=== PATIENT | female | born 1990 | race Asian ===

== ENCOUNTER → 2020-08-04 | Outpatient (CLI) | payer OTHER ==
[~2020-08-04] MED LIST: NO ITAB PO; PREN1CHW6 PO
--- NOTE | 2020-08-07 10:17 | ECHO ---
DATE OF PROCEDURE: 08/04/2020 Age: 29 Gender: Female Height: 165 cm Weight: 54.4 kg REFERRING PHYSICIAN: Pranay Deras MD INDICATION: Chemotherapy drugs that may affect the heart. MEASUREMENTS: 2D Measurements: Aortic root 2.9 cm Left atrium 3.2 cm Intraventricular septum 0.84 cm Posterior wall 0.96 cm Left ventricle diastole 4.6 cm Inferior vena cava 2.2 cm Doppler Measurements: No aortic regurgitation No aortic stenosis Aortic valve velocity 119 cm/s LVOT velocity 68.4 cm/s Very mild mitral regurgitation Mitral E velocity 59.6 cm/s Mitral A velocity 38.5 cm/s Mitral deceleration time 218 msec Trace tricuspid regurgitation Estimated right ventricular systolic pressure 27-32 mmHg Very mild pulmonic regurgitation Pulmonary artery acceleration time 187 msec MITRAL ANNULAR TISSUE DOPPLER E prime septal 10.4 cm/s DESCRIPTION: Rhythm was sinus bradycardia. Image quality was fair. No pericardial effusion. This was a 2D, M-mode, color flow Doppler, and pulsed wave Doppler examination including mitral annular tissue Doppler. No pericardial effusion. CONCLUSIONS: 1. Normal echocardiogram Doppler. 2. Normal left ventricle internal dimensions and wall thickness. Normal regional LV wall motion and wall thickening. Normal LV systolic function. LVEF 65% by visual estimate. Normal LV diastolic function. MTDD
== END ==
LOC: M CARPUL 14:32
PROVIDERS: ATTEND Specialist
DX: C50.919 Malignant neoplasm of unspecified site of unspecified female breast (principal)

== ENCOUNTER → 2020-08-11 | Outpatient (CLI) | payer OTHER ==
[~2020-08-11] MED LIST changes: +PROHANCE 279.3MG/ML 15ML VIAL As Ordered ONE
--- NOTE | 2020-08-11 18:20 | REP ---
INDICATION: BREAST CA RIGHT BREAST, IDC. COMPARISON: Mammogram and ultrasound 07/21/2020. TECHNIQUE: Three [place] MRI imaging was performed with a dedicated breast coil. Axial, coronal, and sagittal T1 and T2 weighted scans were obtained with and without fat saturation in the usual fashion. The study includes dynamically acquired post gadolinium-enhanced imaging with image subtraction. Maximum intensity projection and multi planar reformation imaging is included as well. This study is interpreted with the aid of LinksyD, an FDA approved computer aided detection (CAD) software program, on a dedicated breast MRI workstation. The gadolinium enhancement dose is 10 mL of intravenous ProHance. FINDINGS: There is an extreme pattern of parenchymal tissue bilaterally. In the right breast at approximately 1 o'clock, there is a cyst measuring approximately 2.2 cm in diameter. There are several subcentimeter cysts scattered throughout the left breast, as well as a cyst in the lower outer aspect measuring approximately 1.4 cm. There is moderate background parenchymal enhancement. There is a biopsy clip located superiorly and far laterally in the right breast, at the level of the cyst, and another biopsy clip is seen more inferiorly in the lateral right breast at about 8 o'clock. No discrete enhancing mass is visualized at these locations, rather there is diffuse heterogeneous, bulky and somewhat nodular enhancement throughout all 4 quadrants of the right breast. All areas demonstrate suspicious, predominantly washout type enhancement. The abnormal enhancing soft tissue extends into to the right axillary region. There is also diffuse skin thickening and enhancement. The findings are consistent with diffuse invasive tumor infiltration of the entire right breast and axilla, with lymphatic spread. A conglomerate of enlarged lymph nodes in the right axilla is visualized. The conglomerate in total measures approximately 3.7 x 2.4 cm. There is no definite enhancement of the underlying pectoralis muscles. On the left there is an asymmetric area of ill-defined focal enhancement. This does not have well-defined margins. Approximate dimensions are 3.0 x 1.7 x 3.1 cm. The area is located at approximately 12 o'clock in the left breast, posteriorly approximately 7-8 cm from the nipple. This area demonstrates predominantly washout type enhancement. It appears suspicious. There is no left axillary adenopathy. IMPRESSION: BI-RADS category 6 known right breast cancer. Diffuse abnormal enhancement throughout all 4 quadrants of the right breast extending into the right axilla. There is also diffuse skin thickening and enhancement. The findings are consistent with diffuse infiltrative tumor throughout the right breast and axilla with lymphatic spread. There is a conglomerate of lymphadenopathy in the right axilla. Suspicious area of ill-defined enhancement in the 12 o'clock region of the left breast. Recommend second-look ultrasound in this region for potential ultrasound-guided biopsy. <Electronically signed by Colt Anton > 08/11/20 [id number]
== END ==
LOC: EDUNIT# 15:00 → M RAD 15:03
PROVIDERS: ATTEND Nurse Practitioner Primary Care
DX: C50.911 Malignant neoplasm of unspecified site of right female breast (principal); N63.25 Unspecified lump in the left breast, overlapping quadrants
CPT/HCPCS: A9576; C8908

== ENCOUNTER → 2020-08-14 | Outpatient (CLI) | payer OTHER ==
[~2020-08-14] MED LIST changes: +LIDOCAINE 1% MDV 20ML VIAL As Ordered ONE; +MIDAZOLAM INJ 2MG/2ML VIAL (J2250 PER 1MG) As Ordered ONE; -PROHANCE 279.3MG/ML 15ML VIAL As Ordered ONE; +PROMETHAZINE INJ 25 MG/ML VIAL (J2550) As Ordered ONE; +ceFAZolin 2 GM/D5W 50 ML IV BAG (J0690 PER 500MG) As Ordered ONE; +diphenhydrAMINE 50MG/ML VIAL (J1200) As Ordered ONE; +fentaNYL 100 MCG/2 ML INJECTION (J3010) As Ordered ONE
[2020-08-14 17:22] VITALS: BP 102/69
--- NOTE | 2020-08-15 10:50 | IRPON ---
IR Postoperative Note Date Of Procedure: August 14, 2020 Time Of Procedure: 16:00 IR Postoperative Note IR Ultrasound and fluoroscopy guided port placement. IR Ultrasound of the neck. IR Moderate sedation. Clinical indication: Right-sided breast cancer. Physician: Dr. Jauregui. Procedure: The patient was advised of the benefits, risks, and alternatives of the procedure and informed consent was obtained. A time-out was performed with verification of the patient's name, MRN, site of procedure and type of procedure to be performed. The patient was positioned in the supine position on the angiographic table. The site was prepped and draped in the usual sterile fashion. Moderate sedation was performed by the physician including the presence of an independent trained RN who assisted and monitored the patient's level of consciousness and physiologic status. Following the administration of fentanyl and Versed , the physician spent 45 minutes of continuous face to face time with the patient. Ultrasound of the neck reveals a patent and compressible left internal jugular vein. A cartridge feeder radiograph reveals no gross abnormality. The neck and anterior chest wall were anesthetized with lidocaine. The left internal jugular vein was accessed using a microintroducer needle under ultrasound guidance, via a lateral approach. An 018 wire was advanced into the superior vena cava, the needle was removed and a microsheath was placed. An Amplatz wire was then passed into the inferior vena cava. An incision at the internal jugular vein access site and anterior chest wall were made using a scalpel. An incision was made at the anterior chest wall. A small pocket was created using a combination of blunt and sharp dissection. A tunneling device was then used to pass the catheter from the pocket to the neck puncture site. An 8- [place] Genability Smart power port was then positioned in the pocket. The catheter was then measured and cut. The introducer sheath was exchanged for a peel-away sheath. The catheter was passed through the peel-away sheath into the internal jugular vein and the peel-away sheath was removed. The port tip was positioned at the cavoatrial junction. The port was then accessed with a Horn needle. The port flushes and aspirates well. The puncture site in the neck was closed. The chest wall incision was then closed with 2-0 Vicryl and 4-0 Monocryl. Glue and Steri- Strips were applied. A sterile dressing was then applied. The patient tolerated the procedure well and was returned to the PRU in stable condition. Estimated blood loss: <5 ml. Complications: None. Conclusion: 1. Successful placement of an 8-[place] Angio dynamics Smart power port via the left internal jugular vein. The port is ready for immediate use. 2. Patient to follow up in IR clinic in 2 weeks. Thank you for this referral. CR JAUREGUI MD August 15, 2020 10:50
== END ==
LOC: M IRPRO 13:19
PROVIDERS: ATTEND Radiology Diagnostic Radiology
DX: C50.911 Malignant neoplasm of unspecified site of right female breast (principal)
CPT/HCPCS: 36561; 99152; 99153; C1769; C1788; C1894; J0690; J1200; J1642; J1644; J2250; J3010

== ENCOUNTER → 2020-08-14 | Outpatient (CLI) | payer OTHER ==
[~2020-08-14] MED LIST changes: -LIDOCAINE 1% MDV 20ML VIAL As Ordered ONE; -MIDAZOLAM INJ 2MG/2ML VIAL (J2250 PER 1MG) As Ordered ONE; -PROMETHAZINE INJ 25 MG/ML VIAL (J2550) As Ordered ONE; -ceFAZolin 2 GM/D5W 50 ML IV BAG (J0690 PER 500MG) As Ordered ONE; -diphenhydrAMINE 50MG/ML VIAL (J1200) As Ordered ONE; -fentaNYL 100 MCG/2 ML INJECTION (J3010) As Ordered ONE
== END ==
LOC: M PLALAB 10:07
PROVIDERS: ATTEND Surgery
DX: C50.911 Malignant neoplasm of unspecified site of right female breast (principal)

== ENCOUNTER → 2020-08-16 | Outpatient (CLI) | payer OTHER ==
--- NOTE | 2020-08-17 08:01 | REP ---
INDICATION: R92.8 ABN MRI OF LEFT BREAST. Extensive carcinoma of the right breast. COMPARISON: Comparison is made with MRI study from August 11, 2020.. TECHNIQUE: Targeted left breast sonography in the superior aspect of the left breast. There is a dressing 4 recently placed chemotherapy infusion port in the subclavicular soft tissues on the left but this is a little more medial than the area of interest and is not felt to have substantially interfered with the study. FINDINGS: Left breast is scanned superiorly from 11:00 to 1:00. Scanning was performed with me physically in the room. At 11 the donis 30 near the nipple there is a tiny 4 mm cyst. There is sonographically unremarkable heterogeneous fibroglandular tissue in the superior left breast. No sonographically suspicious features are observed. In comparison with the area of interest on MRI study there is a separation between 2 areas of fibroglandular tissue in the superior aspect left breast and this corresponds with thick configuration of fibroglandular tissue on the MRI study. The more medial area is the area of interest on MRI scanning. This separation between the 2 areas of fibroglandular tissue can be appreciated on sonography. The more medial area could be localized but there are no sonographically suspicious features. IMPRESSION: Sonographically benign-appearing fibroglandular tissue as described above. Findings were reviewed with Dr. Altamirano at the time of the study. <Electronically signed by Baldev Ireland > 08/17/20 [id number]
== END ==
LOC: M WHC 15:17
PROVIDERS: ATTEND Surgery
DX: R92.8 Other abnormal and inconclusive findings on diagnostic imaging of breast (principal)

== ENCOUNTER → 2020-08-16 | Outpatient (REF) | payer OTHER ==
[~2020-08-16] MED LIST changes: +ATIV1TAB7 PO; +LIDO1CRE42 TOP; +OXYC1TAB23
== END ==
LOC: M LAB REF 19:39
PROVIDERS: ATTEND Surgery
DX: C50.911 Malignant neoplasm of unspecified site of right female breast (principal)

== ENCOUNTER → 2020-08-18 | Outpatient (CLI) | payer OTHER ==
[~2020-08-18] MED LIST changes: -ATIV1TAB7 PO; -LIDO1CRE42 TOP; -OXYC1TAB23
--- NOTE | 2020-08-18 10:23 | REP ---
INDICATION: R92.8 ABN MRI OF LEFT BREAST. Biopsy-proven malignancy contra laterally in the right breast. COMPARISON: Comparison mammography July 21, 2020. Comparison left breast sonography August 16, 2020. Comparison bilateral breast MRI study August [id number]. TECHNIQUE: Craniocaudal, mediolateral oblique, and mediolateral views of the left breast are obtained. 3D tomography including ragini spot mammography is deployed. This mammogram was interpreted with the aid of an FDA-approved computer-aided detection system. FINDINGS: Breast parenchyma is extremely dense. The Volpara volumetric breast density pattern is D. On the craniocaudal spot ragini images there is an area of breast parenchymal density which is not suspicious by mammographic criteria but which may correspond with the area of enhancement on recent MRI study. The orthogonal spot images are felt to be 2 inferior. These were limited by the dressing associated with the recently placed Asrtex-H-Puab. A mediolateral oblique projection with a "bread clark" spot device does not show any mammographically visible suspicious target.: IMPRESSION: There is no mammographically suspicious target or abnormality in the left breast. Breast parenchyma is heterogeneously dense as previously noted. Left sided Pydpmh-J-Bxuc catheter device is in place which limits mammographic projection somewhat. Findings were reviewed at the view box with Dr. Altamriano at the time of the exam. RECOMMENDATION: After consultation with Dr. Altamirano. We will proceed with ultrasound-guided needle biopsy left breast. <Electronically signed by Baldev Ireland > 08/18/20 [id number]
== END ==
LOC: M WHC 08:30
PROVIDERS: ATTEND Surgery
DX: N63.20 Unspecified lump in the left breast, unspecified quadrant (principal)
CPT/HCPCS: 77065; G0279

== ENCOUNTER → 2020-08-21 | Outpatient (CLI) | payer OTHER ==
[~2020-08-21] MED LIST changes: +ATIV1TAB7 PO
--- NOTE | 2020-08-22 16:50 | REP ---
INDICATION: STAGING INVASIVE DUCTAL CARCINOMA RT LYMPHNODE. Two weeks status post left arm COVID vaccine 1. COMPARISON: Comparison is made with recent breast imaging including breast MRI and mammography.. TECHNIQUE: Forty-seven minutes following the intravenous injection of a 8.13 mCi dose of F-18 FDG, three-dimensional PET scintigraphy is acquired from the skull base to the proximal thighs. Triplanar noncontrast CT scanning is acquired through the same anatomic range for attenuation correction, and image registration with scan parameters optimized to minimize radiation exposure to the patient. PET scintigraphy and CT datasets were fused and displayed on a workstation with multiplanar and projection display capability. FINDINGS: There is multifocal bilateral uptake in the supraclavicular and cervical regions. Some of this may be due to brown fat but there is evidence of a small normal-sized right cervical lymph node with maximum SUV value 3.49 which is felt to be somewhat suspicious. There is a left axillary normal-sized lymph node showing maximum standard uptake value There is widespread extensive markedly hypermetabolic uptake throughout the right breast. Maximum standard uptake value in the right breast is in the the lateral aspect of the right breast, maximum SUV value 17.76. There is hypermetabolic right axillary lymphadenopathy maximum standard uptake value 14.07 and 9.12 in right axillary lymph nodes. There is some right subclavian juan uptake in tiny lymph nodes. There is a small subcentimeter focus of increased uptake in the right internal mammary lymph node chain in and parasternal region where maximum standard uptake value is 3.85. There is no abnormal hypermetabolic uptake in the left breast soft tissues. No abnormal hypermetabolic uptake is seen within the pulmonary parenchyma or in hilar or mediastinal nodes. No abnormal pleural uptake is seen. In the abdomen and pelvis, there is normal hepatic, splenic, gastrointestinal, and genitourinary FDG accumulation. No abnormal abdominal or pelvic hypermetabolic uptake focus is seen. In the skeleton, there is a 2 cm radiolucency in the left ischium which shows hypermetabolic uptake. Maximum standard uptake value is 10.93. This consistent with a skeletal metastasis. No other bony metastasis is appreciated. IMPRESSION: 1. There is extensive hypermetabolic uptake throughout the right breast. 2. There is hypermetabolic right axillary and right subclavian adenopathy. A suspicious of but tiny focus of internal mammary uptake is seen on the right. 3. There is equivocal juan uptake in the supraclavicular regions bilaterally, a sub cm right cervical node, and in the left axillary lymph node. Some of this activity could be related to brown fat and the patient is status post COVID vaccination in the left arm 2 weeks ago. 4. There is a suspicious lytic lesion in the left ischium, 2 cm in diameter showing hypermetabolic uptake consistent with a skeletal metastasis. <Electronically signed by Baldev Ireland > 08/22/20 [id number]
== END ==
LOC: M PLARAD 12:01
PROVIDERS: ATTEND Nurse Practitioner Primary Care
DX: C50.911 Malignant neoplasm of unspecified site of right female breast (principal)
CPT/HCPCS: 78815; A9552

== ENCOUNTER → 2020-08-22 | Outpatient (CLI) | payer OTHER ==
--- NOTE | 2020-08-23 08:33 | RADONC.CN ---
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 She is seen today to discuss the role of RT in her care. Diagnosis/Treatment History Oncologic History May 2020 noted onset of right breast redness and induration. 07/21/20 Mammogram & US with right breast central abnormality and right axillary adenopathy, enlarged, confluent 07/24/20 Biopsy right breast; IDC grade 2 ER/[place]/HER2+, right axillary node biopsy; IDC 08/11/20 MRI diffuse enhancing mass in the central right breast, also left breast 12:00 lesion 08/16/20 US left breast with benign appearing tissues Subsequent skin punch biopsies confirming tumor in the dermal lymphatics Relevant data: 08/21/20 PET-CT Marked avidity in the right breast enhancing mass and adenopathy extending to cervical level IV Left axillary adenopathy of normal size and mild uptake, suspect reactive Left ischium lytic lesion with marked avidity concerning for metastasis Breast history: Menses @ 11 Pre-menopausal OCP use x 10 years No fertility treatments Interval History Here with her supportive . She reports that the right breast is not painful, but is somewhat tender. She notes no swelling in the right arm. Had COVID vaccine in the left arm last week. Did well with this no symptoms. She reports no pain of recent trauma to the pelvis or any bones. She has preserved appetite and energy level. Coping with her situation by communicating with family, she reports a positive outlook overall. Past Medical History: ADHD Past Surgical History: As above Family History: Brother colon cancer Social History: Current smoker up to 1 ppd Drinks on occasion, not to excess Allergies / Meds Allergies: Coded Allergies: amoxicillin (Verified Allergy, Intermediate, hives, 08/14/20) Home Meds Reported Medications Vit37/Iron/Folic Acid (Prenata Chewable Tablet) 1 Each Tab.chew, 1 TAB PO DAILY for 30 Days, #30 TAB 08/03/20 Multivitamin with Minerals (Multiple Vitamin) 1 Each Tablet, 1 TAB PO, TAB 08/03/20 Review of Systems General: Reports: Normal Appetite Constitutional: Denies: Chills, Fever, Night Sweats Eyes: Denies: Pain, Vision change HEENT: Denies: Head Aches, Dysphagia, Sore Throat Skin: Denies: Rash, Lesions, Bruising Pulmonary: Denies: Dyspnea, Cough Cardiovascular: Denies: Chest Pain, Palpitations, Edema Breast: Reports: New Breast Lumps / Masses (As above) Gastrointestinal: Denies: Nausea, Vomiting, Abdominal Pain, Diarrhea Genitourinary: Denies: Dysuria, Frequency, Incontinence Hematologic: Denies: Bruising, Petecchia, Enlarged Lymph Nodes Musculoskeletal: Denies: Neck pain, Back pain Neurological: Denies: Weakness, Numbness, Incoordination Psych: Reports: Mood Normal; Denies: Memory Issues, Thoughts of Self Harm Vital Signs Ht 65" Wt 129 lbs BMI 21 T 98 P 55 RR 16 BP 100/66 O2 92% Pain 0 Fatigue 1 General Exam: Positive: Alert, Cooperative, No Acute Distress Eye Exam: Positive: PERRLA, EOMI ENT EXAM: Positive: Atraumatic, Mucous membr. moist/pink, Tongue Midline Neck Exam: Positive: Supple; Negative: Lymphadenopathy (No palpable adenopathy in the neck or supraclavicular fossae) Chest Exam: Positive: Clear to auscultation, Normal air movement Heart Exam: Positive: Rate Normal, Regular Rhythm Breast Exam: Positive: Lumps or Masses (The right breast is enlarged, red and indurated compared to left, there is peau d'orange skin changes in a periareolar distribution. The entirety of the right breast is red. The breast is hard to palpation, it is mobile with respect to the chest wall, there is minimal tenderness. There are hard fixed axillary LNs palpable on the right, I am unable to count how many constitute the matted mass. The left breast is dense there, are no skin changes or palpable lesions in the breast or left axilla. There is no swelling of the RUE or LUE. ); Negative: Symmetric Bilaterally Abdomen Exam: Positive: Soft; Negative: Tenderness Extremity Exam: Negative: Edema Neuro Exam: Positive: Normal Gait, Normal Speech, Cranial Nerves 3-12 NL Psych Exam: Positive: Mental status NL, Mood NL Diagnostic and Laboratory Diagnostic Review Radiologic images, relevant labs and pathology reports were personally reviewed and discussed with Ms. Ridley. Assessment and Plan Impression Ms. Ridley is a 29 year old female current smoker with right inflammatory breast cancer [id number] stage IV. She is seen today to discuss the role of RT in her care. Stage Stage IV [id number] right central breast cancer IDC ER/[place]/HER2+ Grade 2 Performance Status ECOG 0 Plan We had an extensive discussion with Ms. Ridley regarding the diagnosis at hand and available therapeutic options. She is young fit and otherwise healthy. Her right breast harbors an impressive lesion which she states manifested over the course of weeks. She also has extensive regional adenopathy. More concerning however is the likely solitary left ischium metastasis. I reviewed her PET-CT with her and her extensively and discussed the implications of the likely metastasis on her treatment. I first recommend that she have a confirmatory bone biopsy as this is the only other site of disease outside of the locoregional disease. I explained that regardless of the results of the biopsy initial treatment in her case would consist of systemic therapy, for which she is seeing Dr. Deras on Friday. She has a triple positive cancer, so some combination of cytotoxic chemotherapy and HER2-targetted therapy would be given first. If she has a good response to initial systemic therapy (as evidenced outwardly by normalization of the right breast) then we could consider restaging imaging and consolidative local therapy under an oligometastatic paradigm. Surgery (if felt warranted by Dr. Altamirano) or Aggressive local RT (to both the locoregional disease, and the solitary metastasis in the left ischium) could be used. From there she could complete additional chemotherapy and transition eventually to hormonal therapy. That would be the ideal case. If she fails to respond to initial systemic therapy then earlier incorporation of RT may be warranted versus changing the chemo regimen, in this event we would expect a poorer prognosis. We spoke for > 30 minutes regarding these scenarios. I ordered the bone biopsy and will follow up with her regarding the results. I also discussed the case with Drs. Deras and Evelia and we are in agreement to proceed with biopsy and systemic therapy as planned. We can revisit next steps as her initial course of therapy proceeds and her response is made known. I will tentatively see her in 2 months time, or sooner if needed. We instructed the patient that if there were any questions,concerns or changes in clinical status in the interim to contact us. Recommendations Systemic therapy per Dr. Deras as initial course Will revisit the role of local therapy under an oligometastatic paradigm contingent upon her initial response to systemic therapy Left ischium bone biopsy ordered stat Follow up biopsy results by phone Follow up in person in 2 months Billing Statement Total time of [71] minutes was spent preparing for the visit [4], obtaining HPI [8], examining the patient [6], reviewing diagnostic tests [5], discussing management options [33], coordinating care [6], and writing this note [9]. WILFREDO JORDAN MD August 23, 2020 08:33
== END ==
LOC: M ONCR 14:23
PROVIDERS: ATTEND General Practice
DX: C50.111 Malignant neoplasm of central portion of right female breast (principal)

== ENCOUNTER → 2020-08-23 | Outpatient (CLI) | payer OTHER ==
[~2020-08-23] MED LIST changes: +LIDOCAINE 1% MDV 20ML VIAL As Ordered ONE
[2020-08-23 16:10] VITALS: BP 101/58
--- NOTE | 2020-08-23 17:37 | REP ---
INDICATION: LESION LT ISCHIUM / LAB FIRST. COMPARISON: None. TECHNIQUE: The procedure was performed under the direct supervision of Dr. Ireland The patient has a history of a 2 cm radiolucency in the left ischium which is hypermetabolic. This was seen on a previous PET scan dated 08/21/2020. The risks and benefits of the procedure were explained to the patient and informed consent was obtained. The left ischial lesion was localized using CT guidance. The skin was prepped and draped in a sterile fashion. 1% lidocaine was used as a local anesthetic. Using CT guidance a 16 gauge bone biopsy needle system was inserted and 5 core biopsy samples were obtained. The patient tolerated the procedure well and there were no immediate complications. After the appropriate amount to monitor convalescence the patient was discharged from the department. FINDINGS: None IMPRESSION: CT-guided left ischial bone biopsy. <Electronically signed by Kelvin Ho > 08/23/20 [id number] <Electronically signed by Baldev Ireland > 08/23/20 [id number]
== END ==
LOC: M LAB 13:46
PROVIDERS: ATTEND General Practice
DX: C50.111 Malignant neoplasm of central portion of right female breast (principal)

== ENCOUNTER → 2020-09-05 | Outpatient (POV) | payer OTHER ==
[~2020-09-05] VITALS: Ht 165.1 cm; Wt 57.7 kg
[~2020-09-05] MED LIST changes: +LIDO1CRE42 TOP; -LIDOCAINE 1% MDV 20ML VIAL As Ordered ONE; +ONDA4TAB6 PO; +OXYC1TAB23; +OXYC1TAB23 PO; +PROC10TA4 PO
[2020-09-05 10:25] VITALS: BP 101/63
--- NOTE | 2020-09-06 13:02 | IRPN ---
[facility] IR Progress Note IR Progress Note DATE: Sep 05, 2020 FOLLOW-UP: Patient is status post port placement. Patient states she is doing well. No fevers, chills, pain at site or discharge from site. Port was used without difficulty. ON EXAMINATION: Port site appears to be healing well. No redness, swelling or discharge. IMPRESSION: Doing well status post port placement. No further follow-up scheduled unless initiated by patient and/or referring provider. Thank you for this referral Allergies Coded Allergies: amoxicillin (Verified Allergy, Intermediate, hives, 08/14/20) VS,Fishbone, I+O VS, Fishbone, I+O Vital Signs Date Time Temp Pulse Resp B/P (MAP) Pulse Ox O2 Delivery O2 Flow Rate FiO2 09/05/20 10:25 97.5 78 20 101/63 (76) 99 Room Air CR BROWN MD Sep 06, 2020 13:02
== END ==
LOC: M IRPOV 09:56
PROVIDERS: ATTEND Radiology Diagnostic Radiology
DX: Z45.2 Encounter for adjustment and management of vascular access device (principal); Z88.1 Allergy status to other antibiotic agents

== ENCOUNTER → 2020-10-31 | Outpatient (CLI) | payer OTHER ==
[~2020-10-31] MED LIST changes: +AZEL20CR; +AZELAIC ACID TOP; +BENA25CA4 PO; +CLIN1GEL19 TOP; +GABA-1171 PO; +MAGICMW SSP; +MELA10CA6 PO; +MUPI30CR TOP; +MYLA1SUS PO; +PEPC1TAB5 PO; +VENL37.598 PO; +ZOFR4TAB16 PO
--- NOTE | 2020-10-31 13:32 | RADONC ---
Radiation Oncology Hx/FUP Radiation Oncology Hx/FUP Date of Service: Oct 31, 2020 Pt Identifier Annika Ridley is a 29 year old female seen for a followup visit today at the department of radiation oncology for a history of oligometastatic right inflammatory breast cancer [id number] stage IV (solitary left ischial metastasis). She is seen today in the midst of systemic therapy to assess her response in the breast and re-evaluate the ongoing role of RT in her care. Diagnosis/Treatment History Oncologic History May 2020 noted onset of right breast redness and induration. 07/21/20 Mammogram & US with right breast central abnormality and right axillary adenopathy, enlarged, confluent 07/24/20 Biopsy right breast; IDC grade 2 ER/SD/HER2+, right axillary node biopsy; IDC 08/11/20 MRI diffuse enhancing mass in the central right breast, also left breast 12:00 lesion 08/16/20 US left breast with benign appearing tissues Subsequent skin punch biopsies confirming tumor in the dermal lymphatics 08/21/20 PET-CT Marked avidity in the right breast enhancing mass and adenopathy extending to cervical level IV Left axillary adenopathy of normal size and mild uptake, suspect reactive Left ischium lytic lesion with marked avidity concerning for metastasis 08/23/20 Left ischium biopsy positive for mBC 09/14/20 MRI brain negative for metastases 08/31/20- Started Taxol-Herceptin/Perjeta (Dr. Deras) Interval History Here with her sister. Annika reports that chemotherapy has caused her fatigue and mild nausea/malaise but otherwise no significant side effects, no neuropathy or diarrhea. She notes that the right breast skin has cleared but that she has a rash on her upper chest and shoulders since starting treatment that hasn't gone away. Appetite and weight stable. Current Therapy Taxol/herceptin/perjeta Stage [id number] stage IV (solitary left ischial metastasis) Social History: Current smoker 5-10 cigarettes daily since 15 Drinks 1-2 drinks on occasion Allergies / Meds Allergies: Coded Allergies: amoxicillin (Verified Allergy, Intermediate, hives, 08/14/20) sulfamethizole (Verified Allergy, Intermediate, Rash, 09/20/20) Home Meds Active Scripts Ondansetron HCl (Zofran) 4 Mg Tablet, 4 MG PO Q6-8HP PRN for nausea/vomiting for 2 Days, #30 TAB Prov:DHARA DERAS MD 10/27/20 Oxycodone HCl/Acetaminophen (Oxycodone-Acetaminophen 5-325) 1 Each Tablet, 1-2 TAB PO Q4HRS MDD 6, #120 TAB Prov:HDARA DERAS MD 10/26/20 Lorazepam (Ativan) 1 Mg Tablet, 1 MG PO ONCE PRN for anxiety MDD 2 Tablet(s) for 30 Days, #60 TAB Prov:DHARA DERAS MD 10/26/20 Lidocaine/Prilocaine (Lidocaine-Prilocaine Cream) 2.5%/2.5% Cream..g., 1 APLCT TOP ASDIRECTED, #30 GRAM 1 Refill Prov:DHARA DERAS MD 10/26/20 Magic Mouthwash (First-Mouthwash Blm) 1 Ea Susp, 10 ML SSP QID PRN for MUCOSITIS, #240 ML 5 Refills (Diphenhydramine/maalox/lidocaine 1:1:1) May compound if kit unavailable/not covered by insurance Prov:DHARA DERAS MD 10/25/20 Prochlorperazine Maleate (Prochlorperazine Maleate) 10 Mg Tablet, 10 MG PO Q8H PRN for NAUSEA OR VOMITING, #30 TAB 3 Refills TAKE ONE TAB BY MOUTH NEEDED FOR BREAKTHROUGH NAUSEA/VOMITING Prov:DHARA DERAS MD 09/06/20 Reported Medications [Azelaic Acid 20%] No Conflict Check, 1 APPLIC TOP QAM 10/04/20 Discontinued Reported Medications Clindamycin Phos/Benzoyl Perox (Clindamycin-Benzoyl Perox 1-5%) 25 Gm Gel..gram., 1 APLCT TOP QHS for 30 Days, #25 GRAM 10/04/20 Vit37/Iron/Folic Acid (Prenata Chewable Tablet) 1 Each Tab.chew, 1 TAB PO DAILY for 30 Days, #30 TAB 08/03/20 Multivitamin with Minerals (Multiple Vitamin) 1 Each Tablet, 1 TAB PO, TAB 08/03/20 Discontinued Scripts Ondansetron (Ondansetron Odt) 4 Mg Tab.rapdis, 4 MG PO Q6-8HP PRN for nausea/vomiting for 4 Days, #8 TAB Prov:DHARA DERAS MD 10/19/20 Venlafaxine HCl (Venlafaxine HCl ER) 37.5 Mg Cap.er.24h, 37.5 MG PO DAILY MDD 1 cap for 30 Days, #30 CAP 6 Refills Prov:DHARA DERAS MD 10/11/20 Review of Systems Review of Systems Eyes: Denies: Pain HEENT: Denies: Head Aches Skin: Reports: Rash Breast: Reports: Breast Skin Changes (Clearing of erythema); Denies: New Breast Lumps / Masses, Nipple Discharge, Breast Pain or Tenderness Pulmonary: Denies: Dyspnea Cardiovascular: Denies: Chest Pain Gastrointestinal: Reports: Nausea; Denies: Vomiting, Diarrhea Musculoskeletal: Denies: Neck pain, Back pain Neurological: Denies: Weakness, Numbness Psych: Reports: Mood Normal Physical Examination Vital Signs Wt 129 lbs T 96.7 P 81 RR 16 BP 98/67 O2 100% Pain 0 Fatigue 0 General Exam: Positive: Alert, Cooperative, No Acute Distress Eye Exam: Positive: PERRLA, EOMI ENT EXAM: Positive: Atraumatic Neck Exam: Positive: Supple Chest Exam: Positive: Clear to auscultation Heart Exam: Positive: Rate Normal Breast Exam: Positive: Symmetric Bilaterally (Right breast is symmetrical to left with respect to size and skin color. No residual erythema right breast. ), Lumps or Masses (On palpation there is normalization of the peripheral breast tissue density on the right, however in the central right breast behind and slightly superior to the nipple there is a hard mass ~5-6 cm in extent. Deep palpation of the axilla reveals no residual palpable nodes on the right. There is no supraclavicular adenopathy on the right. ) Abdomen Exam: Positive: Soft Extremity Exam: Negative: Edema Skin Exam: Positive: Nl turgor and temperature, Rash (Acneiform rash left shoulder) Neuro Exam: Positive: Normal Gait, Normal Speech, Cranial Nerves 3-12 NL Psych Exam: Positive: Mental status NL Diagnostic and Laboratory Diagnostic Review Radiologic images, relevant labs and pathology reports were personally reviewed and discussed with Ms. Ridley. Assessment and Plan Impression Assessment Ms. Ridley is a 29 year old female with a history of oligometastatic right inflammatory breast cancer [id number] stage IV (solitary left ischial metastasis). She is seen today in the midst of systemic therapy to assess her response in the breast and re-evaluate the ongoing role of RT in her care. She is tolerating systemic therapy well and the right breast and axillary lesions are responding to therapy. She has sought second opinion [place] [facility] [place] Marroquin on 10/05/20. She agreed with the current plan of T-HP with restaging scans in the next month. To that end I will order a PET-CT for November 2020. I think that this is the best single modality to assess response in both the breast/axilla and the left ischium (response in bone on conventional CT is impossible to discern). Once obtained I will present her case for imaging review at tumor board, given the rarity of the diagnosis and the importance for multidisciplinary consensus. With respect to the contingencies of the PET-CT, I explained that if there has been a good metabolic response in the tumors and no sign of new sites of disease, continuing the current course to it end later this year would be the most sensible option. If there is significant residual hypermetabolism, then we could consider adding RT to augment response. I discussed the emerging data suggesting PFS and OS advantage to incorporating local therapy either concurrently with or as consolidation after systemic therapy for a number of histologies (Sharma et al 2019, SABR-COMET), thus if she is able to achieve a CR metabolically, we might reconsider the role of mastectomy and/or RT for the primary disease. Or if a stable SD is achieved, then we could use local therapeutic modalities to achieve CR. I think this approach is especially appropriate in her case, because unlike most IBC cases she is triple positive, and thus she has HER2-directed and endocrine therapy available to sustain a response, whereas in triple negative cases chemotherapy is the main recourse. She and her sister asked a lot of questions, which centered around whether the current course was "aggresive enough" with respect to chemotherapy and surgery specifically. I explained that the current course is working as evidenced by the response in the breast and nodes, and that more aggressive chemotherapy might not necessarily benefit her in light of her cancer's phenotype. They are satisfied to proceed with restaging PET and I will call with the results once obtained. I will also let Dr. Deras know this is being ordered. I will see her in 2 months in office, or sooner if necessitated by the PET results. Plan Ms. Ridley was encouraged to call with questions or concerns in the interim period. Billing Statement Total time of [39] minutes was spent preparing for the visit [3], obtaining HPI [6], examining the patient [4], reviewing diagnostic tests [3], discussing management options [12], coordinating care [3], and writing this note [8]. WILFREDO JORDAN MD Oct 31, 2020 13:31
== END ==
LOC: M ONCR 11:31
PROVIDERS: ATTEND General Practice
DX: C50.111 Malignant neoplasm of central portion of right female breast (principal); F17.210 Nicotine dependence, cigarettes, uncomplicated; Z79.899 Other long term (current) drug therapy; Z88.1 Allergy status to other antibiotic agents; Z88.8 Allergy status to other drugs, medicaments and biological substances; Z92.21 Personal history of antineoplastic chemotherapy

== ENCOUNTER → 2020-11-10 | Outpatient (CLI) | payer OTHER ==
--- NOTE | 2020-11-10 14:59 | RADENCPD ---
Date/Time of Encounter Date of Encounter: Nov 10, 2020 Time of Encounter: 14:45 Encounter Annika came in today for a brief follow up with her due to concern for recent onset of right breast pain. Since starting chemotherapy she has noted clearing of the skin of the right breast, reduction in axillary adenopathy, and reduction in swelling of the right breast. Over the last few days however she has noted some increased warmth and tenderness in the right breast. This has been concerning to her. Overall she has noted no associated constitutional symptoms, no fevers of GI upset, no nipple discharge or skin reddening. VS WNL On exam the right breast is symmetric relative to the left, there is mild hyperpigmentation of the skin of the lateral right breast, there is no redness, there is mild warmth, the breast is non-tender. The primary hard mass in the superomedial aspect of the right breast is smaller in size than previous visits. The right axillary adenopathy is no longer palpable on exam. I explained that her exam today is reassuring, and that she does not have signs of significant infection, or recurrent cancer. The breast continues to normalize in appearance compared to the time of diagnosis. I believe that her current complaints are non-infectious/inflammatory, I encouraged close monitoring for fever or other signs of infection as well as ice-packs and anti-inflammatory medication. If there are any significant changes in the coming days, I asked then to call me, at that time I would consider empiric antibiotics and imaging. We also reaffirmed the plan for response assessment PET-CT on 12/18/20. I have moved the follow up with me to 12/19/20. WILFREDO JORDAN MD Nov 10, 2020 14:59
== END ==
LOC: M ONCR 14:23
PROVIDERS: ATTEND General Practice
DX: C50.111 Malignant neoplasm of central portion of right female breast (principal); N64.4 Mastodynia; Z92.21 Personal history of antineoplastic chemotherapy

== ENCOUNTER → 2020-11-30 | Outpatient (CLI) | payer OTHER ==
[~2020-11-30] MED LIST changes: +VITAFUSION PO; +[UNRECOGNIZED DRUG - OTHER] PO
--- NOTE | 2020-11-30 20:57 | ECHO ---
ECHOCARDIOGRAM DATE OF PROCEDURE: 11/30/2020 REFERRING PHYSICIAN: DHARA OLIVA MD INDICATION: Malignant neoplasm of the breast Age: Gender: Height: 165 cm Weight: 58 kg MEASUREMENTS: IVS 0.8 cm LV 4.9 cm LVPW 0.8 cm LA 3.1 cm Aorta 3.2 cm Left atrium volume index 25 DOPPLER MEASUREMENT Mitral E wave velocity 63 Mitral A wave 29 E prime septal 10.2 E prime lateral 15.3 FINDINGS: This study is of good technical quality. The patient is in sinus rhythm. Normal LV size and systolic function. Calculated LV EF 64%. Normal RV size and systolic function. Both atria appear normal. All four cardiac valves were well seen and appear normal. No pericardial effusion is noted. Inferior vena cava is normal size. Aortic root, aortic arch, and abdominal aorta all appear normal. Doppler interrogation reveals competent aortic valve. There is trace mitral and trace tricuspid insufficiency. Calculated pulmonary artery pressure is within normal limits. Trace pulmonic insufficiency is also seen. Mitral inflow pattern and tissue Doppler imaging of mitral annulus reveals normal diastolic dysfunction. CONCLUSIONS: 1. Study is of good technical quality. The patient is in sinus rhythm. 2. Normal LV size, systolic and diastolic function. Calculated LV EF 64%. 3. No significant valvular disease. 4. Normal central venous pressure and normal pulmonary artery pressure. 5. Essentially normal echocardiogram. MTDD
== END ==
LOC: M CARPUL 08:40
PROVIDERS: ATTEND Specialist
DX: C50.919 Malignant neoplasm of unspecified site of unspecified female breast (principal); C79.51 Secondary malignant neoplasm of bone

== ENCOUNTER → 2020-12-18 | Outpatient (CLI) | payer OTHER ==
[~2020-12-18] MED LIST changes: +MULTCHW12 PO
--- NOTE | 2020-12-18 16:11 | REP ---
INDICATION: RESTAGING RIGHT BREAST CANCER. COMPARISON: Comparison PET-CT study August 21, 2020. TECHNIQUE: Forty-six minutes following the intravenous injection of a 8.61 mCi dose of F-18 FDG, three-dimensional PET scintigraphy is acquired from the skull base to the proximal thighs. Triplanar noncontrast CT scanning is acquired through the same anatomic range for attenuation correction, and image registration with scan parameters optimized to minimize radiation exposure to the patient. PET scintigraphy and CT datasets were fused and displayed on a workstation with multiplanar and projection display capability. FINDINGS: The previously noted skeletal metastatic site in the left ischium no longer shows hypermetabolic uptake. Maximum SUV 1.59. There is some sclerosis in this previously lytic lesion. This is improved. No new hypermetabolic skeletal uptake focus is seen. The previously noted diffusely hypermetabolic breast uptake on the right is much improved. Right breast tissue uptake is still somewhat increased compared to the left but the improvement is dramatic. Maximum standard uptake value is 2.44. The previously noted internal mammary uptake is no longer apparent. There is evidence of a cystic lesion in the right breast superiorly at 12 o'clock which may be postoperative change or hematoma. Maximum SUV value only 1.05. No suspicious uptake here. There is some a brown fat uptake in the head and neck soft tissues but no evidence of cervical, supraclavicular, or axillary lymphadenopathy on either side. There is a left-sided Hufami-F-Caxi catheter. No abnormal abdominal or pelvic hypermetabolic uptake focus is seen. No abnormal pulmonary parenchymal or other intrathoracic hypermetabolic uptake focus. IMPRESSION: Dramatically improved PET-CT findings. Some residual asymmetric low level uptake diffusely throughout the right breast parenchyma. Much improved from prior study. The known left ischial metastasis is improved and no longer hypermetabolic. No new focus is seen. <Electronically signed by Baldev Ireland > 12/18/20 [id number]
== END ==
LOC: M PLARAD 11:18
PROVIDERS: ATTEND Specialist
DX: C50.811 Malignant neoplasm of overlapping sites of right female breast (principal)
CPT/HCPCS: 78815; A9552

== ENCOUNTER → 2020-12-19 | Outpatient (CLI) | payer OTHER ==
--- NOTE | 2020-12-19 14:38 | RADONC ---
Radiation Oncology Hx/FUP Radiation Oncology Hx/FUP Date of Service: Dec 19, 2020 Pt Identifier Annika Ridley is a 30 year old female seen for a followup visit today at the department of radiation oncology for a history of oligometastatic right inflammatory breast cancer [id number] stage IV (solitary left ischial metastasis). She is seen today in the midst of systemic therapy to assess her response in the breast and re-evaluate the ongoing role of RT in her care. Diagnosis/Treatment History Oncologic History May 2020 noted onset of right breast redness and induration. 07/21/20 Mammogram & US with right breast central abnormality and right axillary adenopathy, enlarged, confluent 07/24/20 Biopsy right breast; IDC grade 2 ER/MD/HER2+, right axillary node biopsy; IDC 08/11/20 MRI diffuse enhancing mass in the central right breast, also left breast 12:00 lesion 08/16/20 US left breast with benign appearing tissues Subsequent skin punch biopsies confirming tumor in the dermal lymphatics 08/21/20 PET-CT Marked avidity in the right breast enhancing mass and adenopathy extending to cervical level IV Left axillary adenopathy of normal size and mild uptake, suspect reactive Left ischium lytic lesion with marked avidity concerning for metastasis 08/23/20 Left ischium biopsy positive for mBC 09/14/20 MRI brain negative for metastases 08/31/20- Started Taxol-Herceptin/Perjeta (Dr. Deras) Recent data: 12/18/20 PET-CT FINDINGS: The previously noted skeletal metastatic site in the left ischium no longer shows hypermetabolic uptake. Maximum SUV 1.59. There is some sclerosis in this previously lytic lesion. This is improved. No new hypermetabolic skeletal uptake focus is seen. The previously noted diffusely hypermetabolic breast uptake on the right is much improved. Right breast tissue uptake is still somewhat increased compared to the left but the improvement is dramatic. Maximum standard uptake value is 2.44. The previously noted internal mammary uptake is no longer apparent. There is evidence of a cystic lesion in the right breast superiorly at 12 o'clock which may be postoperative change or hematoma. Maximum SUV value only 1.05. No suspicious uptake here. There is some a brown fat uptake in the head and neck soft tissues but no evidence of cervical, supraclavicular, or axillary lymphadenopathy on either side. There is a left-sided Hmqvrq-B-Jwol catheter. No abnormal abdominal or pelvic hypermetabolic uptake focus is seen. No abnormal pulmonary parenchymal or other intrathoracic hypermetabolic uptake focus. IMPRESSION: Dramatically improved PET-CT findings. Some residual asymmetric low level uptake diffusely throughout the right breast parenchyma. Much improved from prior study. The known left ischial metastasis is improved and no longer hypermetabolic. No new focus is seen. Interval History Annika is here with her sister in person, and her by phone. She is tolerating treatment well. She does have some fatigue after each cycle but minimal nausea, and no neuropathy. She does complain of occasional right sided breast pain and RUE pain in the absence of swelling. She does note these come on with certain movements. Appetite remains good and weight is stable. She has a [facility] [place] follow up in the coming weeks. Current Therapy Taxol/herceptin/perjeta Stage [id number] stage IV (solitary left ischial metastasis) Social History: Current smoker 5-10 cigarettes daily since 15 Drinks 1-2 drinks on occasion Allergies / Meds Allergies: Coded Allergies: amoxicillin (Verified Allergy, Intermediate, hives, 08/14/20) sulfamethizole (Verified Allergy, Intermediate, Rash, 09/20/20) Home Meds Active Scripts Ondansetron HCl (Zofran) 4 Mg Tablet, 4 MG PO Q6-8HP PRN for nausea/vomiting for 2 Days, #30 TAB Prov:DHARA DERAS MD 11/22/20 Lorazepam (Ativan) 1 Mg Tablet, 1 MG PO ONCE PRN for anxiety MDD 2 Tablet(s) for 30 Days, #60 TAB Prov:DHARA DERAS MD 11/22/20 Oxycodone HCl/Acetaminophen (Oxycodone-Acetaminophen 5-325) 1 Each Tablet, 1-2 TAB PO Q4HRS MDD 6, #120 TAB Prov:DHARA DERAS MD 10/26/20 Lidocaine/Prilocaine (Lidocaine-Prilocaine Cream) 2.5%/2.5% Cream..g., 1 APLCT TOP ASDIRECTED, #30 GRAM 1 Refill Prov:DHARA DERAS MD 10/26/20 Prochlorperazine Maleate (Prochlorperazine Maleate) 10 Mg Tablet, 10 MG PO Q8H PRN for NAUSEA OR VOMITING, #30 TAB 3 Refills TAKE ONE TAB BY MOUTH NEEDED FOR BREAKTHROUGH NAUSEA/VOMITING Prov:DHARA DERAS MD 09/06/20 Reported Medications Folic Acid/Multivit-Min/Lutein (Multi-Vitamin Gummies) 1 Each Tab.chew, 2 CHW PO BID 12/13/20 [vitafusion D3] No Conflict Check, 2 TAB PO DAILY 12/13/20 Azelaic Acid (Azelex) 30 Gm Cream..g., ASDIRECTED 11/01/20 Melatonin (Melatonin) 10 Mg Capsule, 1 CAP PO QPM for sleep for 30 Days, #30 CAP 11/01/20 Discontinued Reported Medications [Vitafusion Multivit] No Conflict Check, 1 TAB PO DAILY 11/29/20 Famotidine (Pepcid) 20 Mg Tablet, 1 TAB PO DAILY for 30 Days, #60 TAB 11/01/20 Diphenhydramine HCl (Benadryl) 25 Mg Capsule, 1 CAP PO QPM for 30 Days, #30 CAP 11/01/20 Discontinued Scripts Magic Mouthwash (First-Mouthwash Blm) 1 Ea Susp, 10 ML SSP QID PRN for MUCOSIT IS, #240 ML 5 Refills (Diphenhydramine/maalox/lidocaine 1:1:1) May compound if kit unavailable/not covered by insurance Prov:DHARA DERAS MD 11/30/20 Gabapentin (Gabapentin) 100 Mg Capsule, 100 MG PO TID for 30 Days, #90 CAP 3 Refills MAY INCREASE DOSE TOLERATED TO MAX OF 300MG TID. Prov:DHARA DERAS MD 11/02/20 Review of Systems Review of Systems Constitutional: Reports: Fatigue; Denies: Weight Loss HEENT: Denies: Head Aches Skin: Denies: Rash Pulmonary: Denies: Dyspnea Gastrointestinal: Denies: Nausea, Vomiting, Abdominal Pain, Diarrhea Hematologic: Denies: Bruising, Bleeding Excessively Endocrine: Denies: Cold Intolerance Musculoskeletal: Reports: Arm pain; Denies: Neck pain, Back pain, Leg pain Neurological: Denies: Weakness, Numbness Psych: Reports: Mood Normal Physical Examination Vital Signs Wt 131.4 lbs T 97.2 P 71 RR 16 BP 101/68 O2 9(% Pain 0 Fatigue 1 General Exam: Alert, Cooperative, No Acute Distress Eye Exam: PERRLA, EOMI ENT EXAM: Atraumatic Neck Exam: Supple; Negative: Lymphadenopathy Chest Exam: Clear to auscultation, Normal air movement Heart Exam: Rate Normal Breast Exam: Symmetric Bilaterally; Negative: Lumps or Masses, Skin Changes Abdomen Exam: Soft Extremity Exam: Negative: Edema Skin Exam: Nl turgor and temperature, Other skin issue (Mild pallor) Neuro Exam: Normal Gait, Normal Speech, Cranial Nerves 3-12 NL Psych Exam: Mental status NL Diagnostic and Laboratory Diagnostic Review Radiologic images, relevant labs and pathology reports were personally reviewed and discussed with Ms. Ridley. Assessment and Plan Impression Assessment Ms. Ridley is a 30 year old female with a history of oligometastatic right inflammatory breast cancer [id number] stage IV (solitary left ischial metastasis). She is seen today in the midst of systemic therapy to assess her response in the breast and re-evaluate the ongoing role of RT in her care. She is doing very well, fatigue and some musculoskeletal RUE pain seem to be her only ill-effects of treatment thus far. For her pain I discussed referral to PT and she is agreeable. She can also try OTC NSAIDs for this. With respect to her PET-CT I reviewed the images with her and her sister and I could not be more pleased with the response evident therein. I explained that we should continue the current systemic therapy plan through to completion (a sentiment I am confident will be shared by Dr. Deras here, and Dr. Vasques at [facility]). Once she finishes the cytotoxic chemo ~end January 2021, I think we should restage and then formulate a plan for local consolidative therapy, which could if consisting of RT alone, could be given concurrent with HER2 and endocrine therapies without interrupting systemic therapy, or if consisting of surgery (such as mastectomy and ALND) + RT could be sandwiched between the completion of chemotherapy and resumption of HER2 and endocrine therapy. For the particulars of this I believe multidisciplinary input will be lu, in the absence of any randomized data directly applicable to this scenario. I hold however that because her systemic therapy options are exceptional and more likely to hold distant subclinical disease at bay for a longer period (she is triple positive after all, which is biologically/therapeutically more favorable than the usual triple negative or ER/MD- HER2+ varieties of IBC) that the implications of local consolidation in reducing risks of local recurrence may translate into a meaningful PFS and possible OS advantage in this scenario. We can discuss collaboratively at the appropriate time point. In the meantime I will forward the current records to [facility]. I will see her back in early February 2021. I will order PET-CT in conjunction with Dr. Deras to be done upon completion of chemotherapy. Performance Status ECOG 0 Plan Continue systemic therapy Upon completion of taxol will formulate multidisciplinary consensus regarding local consolidation Follow up ~02/28/21 PET-CT upon completion of chemotherapy Ms. Ridley was encouraged to call with questions or concerns in the interim period. Billing Statement Total time of [35] minutes was spent preparing for the visit [4], obtaining HPI [5], examining the patient [3], reviewing diagnostic tests [5], discussing management options [8], coordinating care [2], and writing this note [8]. WILFREDO JORDAN MD Dec 19, 2020 14:38
== END ==
LOC: M ONCR 11:31
PROVIDERS: ATTEND General Practice
DX: C50.111 Malignant neoplasm of central portion of right female breast (principal); F17.210 Nicotine dependence, cigarettes, uncomplicated; Z79.899 Other long term (current) drug therapy; Z92.21 Personal history of antineoplastic chemotherapy

== ENCOUNTER → 2021-01-02 | Outpatient (CLI) | payer OTHER ==
--- NOTE | 2021-01-02 09:59 | RADENCPD ---
Date/Time of Encounter Date of Encounter: Jan 02, 2021 Time of Encounter: 09:58 Encounter Annika came in briefly today to collect records in anticipation of [place] [facility] [place] We will discuss their recommendations via phone after the appointment. NO CHARGE VISIT WILFREDO JORDAN MD Jan 02, 2021 09:59
== END ==
LOC: M ONCR 09:04
PROVIDERS: ATTEND General Practice
DX: C50.111 Malignant neoplasm of central portion of right female breast (principal)

== ENCOUNTER → 2021-03-06 | Outpatient (CLI) | payer OTHER ==
[~2021-03-06] MED LIST changes: +DIAZ2TAB PO
--- NOTE | 2021-03-06 14:52 | RADONC ---
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 She is seen today at the end of taxol chemotherapy and pending resumption of HER2-targeted systemic therapy to re-evaluate the ongoing role of RT in her care. Diagnosis/Treatment History Oncologic History May 2020 noted onset of right breast redness and induration. 07/21/20 Mammogram & US with right breast central abnormality and right axillary adenopathy, enlarged, confluent 07/24/20 Biopsy right breast; IDC grade 2 ER/RI/HER2+, right axillary node biopsy; IDC 08/11/20 MRI diffuse enhancing mass in the central right breast, also left breast 12:00 lesion 08/16/20 US left breast with benign appearing tissues Subsequent skin punch biopsies confirming tumor in the dermal lymphatics 08/21/20 PET-CT Marked avidity in the right breast enhancing mass and adenopathy extending to cervical level IV Left axillary adenopathy of normal size and mild uptake, suspect reactive Left ischium lytic lesion with marked avidity concerning for metastasis 08/23/20 Left ischium biopsy positive for mBC 09/14/20 MRI brain negative for metastases 08/31/20- Started Taxol-Herceptin/Perjeta (Dr. Deras) 12/18/20 PET-CT: IMPRESSION: Dramatically improved PET-CT findings. Some residual asymmetric low level uptake diffusely throughout the right breast parenchyma. Much improved from prior study. The known left ischial metastasis is improved and no longer hypermetabolic. No new focus is seen. 01/29/21 Last taxol Interval History Here with her mother. Annika is feeling much better from a fatigue standpoint with some time off from systemic therapy. She has no pain today. Appetite is good, weight stable. She explains that she and her are looking to relocate to [facility] in the spring. She does not want to pursue surgery at this time. She does want to pursue radiation. Has thought about this extensively. Would want to continue HER2 treatments in the midst of RT. Would prefer to start endocrine therapy after completion of RT. Current Therapy Herceptin/perjeta q3w Lupron/AI pending Stage [id number] stage IV (solitary left ischial metastasis) Social History: Current smoker 5-10 cigarettes daily since 15 Drinks 1-2 drinks on occasion Allergies / Meds Allergies: Coded Allergies: amoxicillin (Verified Allergy, Intermediate, hives, 08/14/20) sulfamethizole (Verified Allergy, Intermediate, Rash, 09/20/20) Home Meds Active Scripts Diazepam (Diazepam) 2 Mg Tablet, 2 MG PO TID for anxiety MDD 3 Tablet(s) for 30 Days, #90 TAB 2 Refills Prov:DHARA DERAS MD 03/02/21 Oxycodone HCl/Acetaminophen (Oxycodone-Acetaminophen 5-325) 1 Each Tablet, 1-2 TAB PO Q4HRS MDD 6, #120 TAB Prov:MINA CURRY MD FACP 02/12/21 Gabapentin (Gabapentin) 100 Mg Capsule, 100 MG PO TID for 30 Days, #90 CAP 4 R efills Prov:DHARA DERAS MD 02/08/21 Lidocaine/Prilocaine (Lidocaine-Prilocaine Cream) 2.5%/2.5% Cream..g., 1 APLCT TOP ASDIRECTED, #30 GRAM 1 Refill Prov:MINA CURRY MD FACP 01/23/21 Ondansetron HCl (Zofran) 4 Mg Tablet, 4 MG PO Q6-8HP PRN for nausea/vomiting for 2 Days, #30 TAB Prov:DHARA DERAS MD 11/22/20 Reported Medications [vitafusion D3] No Conflict Check, 2 TAB PO DAILY 01/23/21 Folic Acid/Multivit-Min/Lutein (Multi-Vitamin Gummies) 1 Each Tab.chew, 2 CHW PO BID 12/13/20 Azelaic Acid (Azelex) 30 Gm Cream..g., ASDIRECTED 11/01/20 Melatonin (Melatonin) 10 Mg Capsule, 1 CAP PO QPM for sleep for 30 Days, #30 CAP 11/01/20 Discontinued Reported Medications Gabapentin (Gabapentin) 100 Mg Capsule, 3 CAP PO QHS 01/03/21 Discontinued Scripts Magic Mouthwash (First-Mouthwash Blm) 1 Ea Susp, 10 ML SSP QID PRN for MUCOSITIS, #240 ML 5 Refills (Diphenhydramine/maalox/lidocaine 1:1:1) May compound if kit unavailable/not covered by insurance Prov:JASS HOBSON MDFRCP 02/13/21 Lorazepam (Ativan) 1 Mg Tablet, 1 MG PO BIDP PRN for anxiety MDD 2 Tablet(s) for 30 Days, #60 TAB Prov:MINA CURRY MD FACP 01/23/21 Review of Systems Review of Systems Constitutional: Denies: Fatigue Eyes: Denies: Pain HEENT: Denies: Head Aches Skin: Denies: Rash Breast: Denies: New Breast Lumps / Masses, Nipple Retraction, Breast Skin Changes, Breast Pain or Tenderness Pulmonary: Denies: Dyspnea Cardiovascular: Denies: Chest Pain, Edema Hematologic: Denies: Enlarged Lymph Nodes Endocrine: Denies: Cold Intolerance Musculoskeletal: Denies: Neck pain, Back pain Neurological: Denies: Weakness, Numbness Psych: Reports: Mood Normal Physical Examination Vital Signs Ht 65" Wt 135 lbs T 99 P 50 RR 16 BP 108/70 O2 100% Pain 0 Fatigue 0 General Exam: Alert, Cooperative, No Acute Distress Eye Exam: PERRLA, EOMI ENT EXAM: Atraumatic Neck Exam: Supple Breast Exam: Symmetric Bilaterally; Negative: Lumps or Masses, Skin Changes (No erythema on right. No mass) Abdomen Exam: Normal bowel sounds, Soft Extremity Exam: Negative: Edema Skin Exam: Nl turgor and temperature Neuro Exam: Normal Gait, Normal Speech, Cranial Nerves 3-12 NL Psych Exam: Mental status NL Diagnostic and Laboratory Diagnostic Review Radiologic images, relevant labs and pathology reports were personally reviewed and discussed with Ms. Ridley. Assessment and Plan Impression Assessment Ms. Ridley is a 30 year old female with a history of oligometastatic right inflammatory breast cancer [id number] stage IV (solitary left ischium metastasis). She is seen today at the end of taxol chemotherapy and pending resumption of HER2-targeted systemic therapy to re-evaluate the ongoing role of RT in her care. Annika has recovered well from the acute effects of her 23 doses of weekly taxol. She has resolution of erythema and induration of the right breast. Dr. Deras has ordered an [id number] PET-CT which will be helpful in assessing the remaining burden of disease. I recounted the multidisciplinary discussions of her case had @ [facility] and here and based on the lack of clear consensus, I presented RT as a viable option now or at the time of recurrence to augment local control (she has opted against mastectomy and ALND). She wants to proceed with RT now prior to her move. I did review with her the emerging data in support of the use of RT to augment PFS in oligometastatic disease across several solid tumors, as evidenced in SABR-COMET most notably, and in oligometastatic RCC (Harris et al. Lancet Oncol 2020) most recently. In her case the treatment of the right whole breast and regional lymphatics and the left ischium site are feasible and can be done concurrently and safely. Most importantly, integration of RT is fully compatible with uninterrupted systemic therapy continuation (HER2 targetted + AI+lupron). She has decided she wants to pursue RT here, prior to her move to [facility] anticipated in Spring 2021. Upon completion I would refer her to [facility] for follow up. For the right breast I would give ~ 60 Gy in 30 fractions to the breast with VMAT and DIBH technique to spare lung dose. For the left ischium, I would treat with DCA-based SBRT 35-40 Gy in 5 fractions. The sites can be treated concurrently so as not to lengthen her course. For prevention of fibrosis I would use concurrent trental and vitamin E which have been shown to mitigate the phenomenon after RT somewhat. For side effects, I anticipate CTCAE grade 2 skin reaction and mild post- treatment fibrosis in the treated breast, as well as fatigue. She agreed to move forward with treatment. Performance Status ECOG 0 Plan RT as described above RT is compatible with planned systemic therapy Simulation on 03/21/21-03/22/21 (patient has pending travel) Will given trental vitamin concurrent with RT Ms. Ridley was encouraged to call with questions or concerns in the interim period. Billing Statement Total time of [39] minutes was spent preparing for the visit [4], obtaining HPI [6], examining the patient [2], reviewing diagnostic tests [2], discussing management options [15], coordinating care [2], and writing this note [39]. WILFREDO JORDAN MD Mar 06, 2021 14:52
== END ==
LOC: M ONCR 10:59
PROVIDERS: ATTEND General Practice
DX: C50.111 Malignant neoplasm of central portion of right female breast (principal)

== ENCOUNTER → 2021-03-09 | Outpatient (CLI) | payer OTHER ==
[~2021-03-09] MED LIST changes: +ANAS1TAB2 PO; +METO10TA2 PO; +ONDA-84 PO; +PENT400T47 PO; +PREG100CA PO; +PREG25CA PO; -PROC10TA4 PO; +PROC10TA5 PO; +TRIA1CR80 TOP; +VITA100020 PO
== END ==
LOC: M CARPUL 11:05
PROVIDERS: ATTEND Nurse Practitioner Adult Health
DX: C50.111 Malignant neoplasm of central portion of right female breast (principal)

== ENCOUNTER → 2021-03-26 | Outpatient (CLI) | payer OTHER | LOC: M PLARAD 07:40 | PROVIDERS: ATTEND Specialist | DX: C50.911 Malignant neoplasm of unspecified site of right female breast (principal) ==

== ENCOUNTER → 2021-04-30 | Outpatient (CLI) | payer OTHER ==
[~2021-04-30] MED LIST changes: -METO10TA2 PO; -ONDA-84 PO
== END ==
LOC: M WHC 09:11
PROVIDERS: ATTEND Specialist
DX: Z13.820 Encounter for screening for osteoporosis (principal); M85.89 Other specified disorders of bone density and structure, multiple sites

== ENCOUNTER → 2021-04-30 | Outpatient (RCR) | payer OTHER ==
[~2021-04-30] MED LIST changes: +ONDA-84 PO
== END ==
LOC: M ONCR 04-18 07:28
PROVIDERS: ATTEND General Practice
DX: C50.111 Malignant neoplasm of central portion of right female breast (principal); C79.51 Secondary malignant neoplasm of bone

== ENCOUNTER 2021-05-25 15:56 | Outpatient (RCR) | payer OTHER ==
[~2021-05-25 15:56] MED LIST changes: +METO10TA2 PO
[2021-05-31] MEDS ORDERED: DOXY-443 PO (11:18)
[2021-05-31] MEDS ORDERED: ONDA-83 PO (11:18)
== END 2021-05-28 ==
LOC: M ONCR 15:56
PROVIDERS: ATTEND General Practice
DX: C79.51 Secondary malignant neoplasm of bone (principal)

== ENCOUNTER 2021-06-13 15:52 | Outpatient (RCR) | payer OTHER ==
[~2021-06-13 15:52] MED LIST changes: +DOXY-443 PO; +MORP-69 PO; +ONDA-83 PO
== END 2021-06-28 ==
LOC: M ONCR 15:52
PROVIDERS: ATTEND General Practice
DX: C50.111 Malignant neoplasm of central portion of right female breast (principal); C79.51 Secondary malignant neoplasm of bone

== ENCOUNTER → 2021-06-18 | Outpatient (CLI) | payer OTHER | LOC: M CARPUL 11:21 | PROVIDERS: ATTEND Specialist | DX: C50.919 Malignant neoplasm of unspecified site of unspecified female breast (principal) ==

== ENCOUNTER → 2021-06-19 | Outpatient (CLI) | payer OTHER | LOC: M ONCR 14:20 | PROVIDERS: ATTEND General Practice | DX: C50.111 Malignant neoplasm of central portion of right female breast (principal); C79.51 Secondary malignant neoplasm of bone ==

== ENCOUNTER → 2021-07-03 | Outpatient (CLI) | payer OTHER | LOC: M ONCR 09:32 | PROVIDERS: ATTEND General Practice | DX: C79.51 Secondary malignant neoplasm of bone (principal) ==